=== PATIENT | male | born 1945 | race Caucasian/White ===

== ENCOUNTER 2021-10-07 17:55 | Emergency (ER) | payer OTHER, MEDICARE ==
[~2021-10-07] VITALS: Ht 180.3 cm; Wt 85.0 kg
[2021-10-07] MEDS ORDERED: normal saline 1000ML IV soln IV ONE (18:25)
[2021-10-07 18:54] LABS: BASOPHILS % (AUTO) 0.6 % (0-1); EOSINOPHILS % (AUTO) 0.5 % (0-6); HEMATOCRIT 48.2 % (42.0-52.0); LYMPHOCYTES # (AUTO) 1.1 X10'3 (1.1-4.8); LYMPHOCYTES % (AUTO) 21.1 % (21-51); MEAN CORPUSCULAR HGB CONC 33.3 g/dL (33.0-36.5); MEAN CORPUSCULAR VOLUME 93.1 FL (78-98); MONOCYTES # (AUTO) 0.4 X10'3 (0-0.9); NEUTROPHILS # (AUTO) 3.8 X10'3 (1.8-7.7); NEUTROPHILS % (AUTO) 70.8 % (42-75); PLATELET COUNT 148 X10'3 (140-440); RED BLOOD COUNT 5.18 X10'6 (4.70-6.10); RED CELL DISTRIBUTION WIDTH 14.4 % (11.5-14.5); WHITE BLOOD COUNT 5.3 X10'3 (4.5-11.0)
[2021-10-07 19:23] LABS: CLARITY,URINE CLOUDY (Clear); COLOR,URINE YELLOW (Yellow); GLUCOSE, URINE NEGATIVE (Neg); KETONES,URINE NEGATIVE (Neg); LEUKOCYTE ESTERASE ,URINE NEGATIVE (Neg); NITRITES, URINE POSITIVE (Neg); OCCULT BLOOD,URINE SMALL (Neg); PH,URINE 5.5 (4.8-8.0); PROTEIN,URINE NEGATIVE (Neg); UROBILINOGEN,URINE 0.2 E.U/dL (0.2-1.0)
[2021-10-07 19:23] LABS: ALANINE AMINOTRANSFERASE 45 U/L (12-78); ALBUMIN 3.9 G/DL (3.4-5.0); ALBUMIN/GLOBULIN RATIO 1.2 (1.1-1.5); ALKALINE PHOSPHATASE 107 IU/L (46-116); ANION GAP 7 (8-16); ASPARTATE AMINO TRANSFERASE 31 U/L (10-37); BILIRUBIN,TOTAL 0.3 MG/DL (0.1-1.0); BLOOD UREA NITROGEN 15 MG/DL (7-18); BUN/CREATININE RATIO 17.9 (5.4-32.0); CALCIUM 8.6 MG/DL (8.5-10.1); CHLORIDE 103 MMOL/L (99-107); CREATININE 0.84 MG/DL (0.60-1.10); GLUCOSE 82 MG/DL (70-104); POTASSIUM 3.8 MMOL/L (3.5-5.1); SODIUM 139 MMOL/L (135-145); TOTAL CARBON DIOXIDE 28.8 MMOL/L (24-32); TOTAL PROTEIN 7.2 G/DL (6.4-8.2); eGFR 89 ML/MIN
[2021-10-07 19:25] LABS: UA COLLECTION TYPE NON-SPECIFIED
[2021-10-07 19:34] LABS: MUCUS STRANDS FEW /LPF (Neg); SQUAMOUS EPITHELIAL CELL,UR FEW /LPF (FEW)
[2021-10-07 19:40] LABS: BACTERIA,URINE 3+ /HPF (Neg); RBC,URINE 0-2 /HPF (0-2); WBC,URINE 0-4 /HPF (0-4)
[2021-10-07 22:51] VITALS: BP 159/79
[2021-10-07] MEDS ORDERED: CEPH250T PO (22:54)
[2021-10-07] MEDS ORDERED: CefTRIAXone 1000mg IM Kit (w/lidocaine diluent) IM ONE (22:55)
--- NOTE | 2021-10-12 16:29 | NUR ---
PT CALLED REGARDING VISIT ON 10/07/21, NO ANSWER AND MSG LEFT TO RETURN CALL
== END 2021-10-07 23:08 | disposition home or self-care (01) ==
LOC: ER 17:57
DX: N39.0 Urinary tract infection, site not specified (principal); R32 Unspecified urinary incontinence; R30.0 Dysuria; I48.91 Unspecified atrial fibrillation; Z79.2 Long term (current) use of antibiotics
CPT/HCPCS: 36415; 80053; 81001; 83605; 84145; 85025; 87040; 87077; 87088; 87186; 99283

== ENCOUNTER 2023-01-05 22:12 | Emergency (ER) | payer OTHER, MEDICARE ==
[~2023-01-05] VITALS: Ht 175.3 cm; Wt 70.0 kg
[2023-01-05] MEDS ORDERED: ondansetron 4mg rapidly disintigrating tab PO ONE (23:05)
[2023-01-05] MEDS ORDERED: HYDROcodone/acetaminophen 10/325mg tab PO ONE (23:05)
[2023-01-05 23:09] LABS: CLARITY,URINE TURBID (Clear); COLOR,URINE YELLOW (Yellow); GLUCOSE, URINE NEGATIVE (Neg); KETONES,URINE NEGATIVE (Neg); LEUKOCYTE ESTERASE ,URINE MODERATE (Neg); OCCULT BLOOD,URINE NEGATIVE (Neg); PH,URINE 8.5 (4.8-8.0); PROTEIN,URINE 100 mg/dl (Neg)
[2023-01-05 23:12] LABS: UA COLLECTION TYPE FOLEY CATH
[2023-01-05 23:18] LABS: NITRITES, URINE NEGATIVE (Neg)
[2023-01-05 23:22] LABS: AMORPHOUS PHOSPHATES 3+; BACTERIA,URINE 2+ /HPF (Neg); MUCUS STRANDS FEW /LPF (Neg); RBC,URINE 0-2 /HPF (0-2); SQUAMOUS EPITHELIAL CELL,UR FEW /LPF (FEW)
[2023-01-05 23:23] LABS: TRIPLE PHOSPHATE CRYST 4+ /HPF (NEGATIVE)
[2023-01-05] MEDS ORDERED: SULF1TAB45 PO (23:33)
[2023-01-05] MEDS ORDERED: sulfamethoxazole/trimethoprim DS (800/160mg) tablet PO ONE (23:35)
[2023-01-06 00:26] VITALS: BP 159/94
--- NOTE | 2023-01-08 17:42 | NUR ---
PT'S FACILITY CALLED TO NOTIFY THAT THE ABX FOR UTI WAS RESISTENT TO THE BACTERIA GROWN IN THE CULTURE. FACILITIES STAFF INFORMED THAT PT WAS ADMITTED TO [facility] FOLLING HIS VISIT ON 01/05.
== END 2023-01-06 00:28 ==
LOC: ER 22:13
DX: T83.511A Infection and inflammatory reaction due to indwelling urethral catheter, initial encounter (principal); N39.0 Urinary tract infection, site not specified
CPT/HCPCS: 81001; 87077; 87088; 87186; 99284

== ENCOUNTER 2023-11-19 10:34 | Outpatient (CLI) | payer OTHER, MEDICARE ==
[2023-11-19 11:04] LABS: BILIRUBIN,URINE NEGATIVE (Neg); CLARITY,URINE CLOUDY (Clear); COLOR,URINE YELLOW (Yellow); GLUCOSE, URINE NEGATIVE (Neg); KETONES,URINE NEGATIVE (Neg); LEUKOCYTE ESTERASE ,URINE LARGE (Neg); NITRITES, URINE POSITIVE (Neg); OCCULT BLOOD,URINE LARGE (Neg); PROTEIN,URINE 100 mg/dl (Neg); UROBILINOGEN,URINE 0.2 E.U/dL (0.2-1.0)
[2023-11-19 11:21] LABS: UA COLLECTION TYPE NON-SPECIFIED
[2023-11-19 11:23] LABS: BACTERIA,URINE 4+ /HPF (Neg); MUCUS STRANDS FEW /LPF (Neg); SQUAMOUS EPITHELIAL CELL,UR NONE SEEN /LPF (FEW); WBC,URINE TNTC /HPF (0-4)
== END 2023-11-19 23:59 | disposition home or self-care (01) ==
LOC: LAB SPEC 10:34
PROVIDERS: ATTEND Family Medicine
DX: R82.90 Unspecified abnormal findings in urine (principal); N39.9 Disorder of urinary system, unspecified; R10.9 Unspecified abdominal pain
CPT/HCPCS: 81001; 87077; 87088; 87186